=== PATIENT | female | born 1980 | race Two or more races ===

== ENCOUNTER → 2021-02-03 07:54 | Outpatient (BNVA) | payer SELFPAY | PROVIDERS: Visit Provider Internal Medicine | DX: Z02.79 Encounter for issue of other medical certificate (principal) ==

== ENCOUNTER → 2022-02-03 08:57 | Outpatient (BNVA) | payer SELFPAY | PROVIDERS: Visit Provider Internal Medicine | DX: Z02.79 Encounter for issue of other medical certificate (principal) ==

== ENCOUNTER → 2023-02-02 08:48 | Outpatient (BNVA) | payer SELFPAY | PROVIDERS: Visit Provider Internal Medicine | DX: Z02.79 Encounter for issue of other medical certificate (principal) ==

== ENCOUNTER 2023-11-16 11:23 | Outpatient (REF) | payer OTHER, SELFPAY ==
--- NOTE | ~2023-11-16 | XR_ITS ---
EXAMINATION: XR LUMBOSACRAL SPINE WITH OBLIQUES CLINICAL INFORMATION: Radiculopathy lumbar region. COMPARISON: None available. TECHNIQUE: AP, lateral neutral, flexion and extension views of the lumbar spine. FINDINGS: Metallic devices obscure the bilateral sacroiliac joints and correlation with clinical exam recommended to determine etiology. Minimal leftward curvature of the lumbar spine. Degenerative changes in the imaged lower thoracic spine. Abundant facet arthritis in the mid to lower lumbar spine. Grade 1 anterolisthesis of L4 on L5 with flexion and extension. Moderate multilevel lumbar spondylosis with moderate loss of disc space height at L4-L5 and L5-S1. XR/XR lumbar spine 4V min IMPRESSION: 1. Moderate multilevel lumbar spondylosis with moderate loss of disc space height at L4-L5 and L5-S1. 2. Grade 1 anterolisthesis of L4 on L5 with flexion and extension. 3. Abundant facet arthritis in the mid to lower lumbar spine.
== END 2023-11-16 11:24 | disposition home or self-care (01) ==
LOC: HO.HOSX 11:23
PROVIDERS: PCP Internal Medicine; Visit Provider Physician Assistant
DX: M54.16 Radiculopathy, lumbar region (principal)
CPT/HCPCS: 72110; 99202

== ENCOUNTER 2023-11-16 11:23 | Outpatient (AMB) | payer OTHER, SELFPAY ==
--- NOTE | 2023-11-16 11:19 | A.SPINEOV_ITS ---
Intake Intake Visit Reasons: Back pain Intake Note: is here today c/o low back pain Arterial Embalmer Required: No Assessment & Plan Assessment & Plan (1) Lumbar radiculopathy: Code(s): M54.16 - Radiculopathy, lumbar region Plan Dear Wiley, Thank you for referring Bhavya to our office today. She is a pleasant [age]-year-old female who comes in today with a chief complaint of low back pain with radiation into her bilateral lower extremities. When describing the radiation she states that it starts in her low back shoots over the lateral aspect of her thighs goes over her lateral knees in terminates in her lateral calves. She reports that these shooting pains are intermittent, and that her worst complaint is her chronic low back pain. She reports that her low back pain was exacerbated on 08/11/2023. She states that she woke up 1 day and felt like she had a significant increase in her pain. When attempting to inquire about any aggravating/alleviating factors, Bhavya reported ?everything bothers me? and was unable to identify if sitting, lying down, standing, or walking makes her pain worse. She has been attempting to utilize [id number] medications for this issue, and has attempted to use ice/heat without much success. PMH: Type 2 diabetes (Last A1C reported by PCP Dr. Otero to be >11, not well controlled T2DM), obstructive sleep apnea, Hyperlipidemia, GERD, asthma. Resection of cyst in right breast. Social hx: Patient smokes 1/2 pack cigarettes per day, reports no substance use. Medications: Metformin, albuterol, fenofibrate, ibuprofen, prednisone (5 day course from orthopedics), cyclobenzaprine, empagliflozin, CPAP machine, ketoconazole. Allergies: Bee stings, erythromycin, kiwi extract, latex, morphine, pineapples. Physical exam: The patient has 5/5 strength in her upper and lower extremities. She has no sensational deficits. Her bilateral patella and Achilles reflexes are 1+ hypoactive. The rest of her reflexes are 2+ intact. She is able to ambulate well and rises from a seated position without difficulty. (-) straight leg raise bilaterally, (-) clonus, (-) Ayers's. Imaging review: MRI of the lumbar spine completed at [facility] shows moderate central canal stenosis at L4-5 with mild right-sided foraminal stenosis and mode rate left-sided foraminal stenosis. Some concern for mild spondylolisthesis at L4-5, which would be better evaluated with flexion/extension x-rays. She has significant facet arthropathy at L3-4 and L4-5. Impression: Bhavya is a pleasant 43-year-old female who comes in today with a chief complaint of low back pain with radiation into her bilateral lower extremities. Upon review of her MRI, all of her lumbar spine nerves on the left and right can be seen exiting the foramen with adequate fat padding and no significant impingement. She does have 1 area of stenosis at L4-5 but this does not appear to be causing any significant impingement of the nerve roots at this level. I believe her pain may be related to her diffuse facet arthropathy which is worse at L3-4 and L4-5. I will be sending Bhavya for a set of flexion/extension x-rays to ensure that there is no instability causing this issue. I also informed her that I will refer her to [facility] for pain control and potential evaluation of injections at L4-5 and/or facet blocks, assuming no instability is seen on x-ray imaging. They will need to be mindful of her current diabetic status when discussing management options. Thank you for allowing us to care for your patient. The total time spent with this visit with this patient was 45 minutes reviewing history, physical exam, MRI imaging review, and implementation of treatment plan or further diagnostic testing Miguel Antonio MD,PhD [facility] Orders: Orders XR lumbar spine 4V min Today M54.16 - Radiculopathy, lumbar region Referrals Pain Management Referral M54.16 - Radiculopathy, lumbar region Coding Level of Care Code New Pt Level 4 (28784) Diagnoses Lumbar radiculopathy M54.16
== END 2023-11-16 12:03 | disposition home or self-care (01) ==
PROVIDERS: PCP Internal Medicine; Referring Provider Physician Assistant; Visit Provider Physician Assistant
DX: M54.16 Radiculopathy, lumbar region (principal)
CPT/HCPCS: 99204

== ENCOUNTER → 2024-01-30 08:02 | Outpatient (BNVA) | payer SELFPAY | PROVIDERS: PCP Internal Medicine; Visit Provider Internal Medicine | DX: Z02.79 Encounter for issue of other medical certificate (principal) ==

== ENCOUNTER → 2025-01-27 08:03 | Outpatient (BNVA) | payer SELFPAY | PROVIDERS: PCP Internal Medicine; Visit Provider Registered Nurse | DX: Z02.79 Encounter for issue of other medical certificate (principal) ==